=== PATIENT | female | born 1995 | race Asian ===

== ENCOUNTER 2019-05-31 20:22 | Emergency (ER) | payer BC ==
[~2019-05-31] VITALS: Ht 152.4 cm; Wt 54.0 kg
[2019-05-31 20:27] VITALS: BP 105/63
== END 2019-05-31 21:15 | disposition home or self-care (01) ==
LOC: ED 20:22
DX: O26.891 Other specified pregnancy related conditions, first trimester (principal); R11.0 Nausea; Z3A.01 Less than 8 weeks gestation of pregnancy
CPT/HCPCS: J8597